=== PATIENT | female | born 1955 | race American Indian/Alaskan Native ===

== ENCOUNTER → 2023-11-16 10:24 | Outpatient (REF) | payer OTHER, SELFPAY ==
[2023-11-16 12:21] LABS: ALT (SGPT) 30 U/L (0-35); AST (SGOT) 34 U/L (14-36); Alkaline Phosphatase 177 U/L (38-126); Direct Bilirubin 0.5 mg/dl (0.0-0.4); GGTP 30 U/L (12-43); Total Bilirubin 0.7 mg/dl (0.2-1.3); Total Protein 7.1 g/dl (6.3-8.2)
== END ==
LOC: CLINIC 10:24
PROVIDERS: ATTENDING PHYSICIAN Nurse Practitioner Adult Health
DX: R74.8 Abnormal levels of other serum enzymes (principal)
CPT/HCPCS: 36415; 80076; 82977

== ENCOUNTER → 2024-01-12 08:07 | Outpatient (REF) | payer OTHER, SELFPAY ==
[2024-01-12 09:00] LABS: Glycohemoglobin (HgbA1c) 6.3 % (4.0-5.6)
[2024-01-12 09:44] LABS: ALT (SGPT) 24 U/L (0-35); AST (SGOT) 30 U/L (14-36); Albumin 4.3 g/dl (3.5-5.0); Alkaline Phosphatase 150 U/L (38-126); Total Bilirubin 0.8 mg/dl (0.2-1.3); Total Protein 7.4 g/dl (6.3-8.2)
[2024-01-12 10:00] LABS: Free T4 0.73 ng/dl (0.78-2.19)
== END ==
LOC: CLINIC 08:07
PROVIDERS: ATTENDING PHYSICIAN Nurse Practitioner Adult Health
DX: R74.8 Abnormal levels of other serum enzymes (principal); E03.9 Hypothyroidism, unspecified; R73.03 Prediabetes
CPT/HCPCS: 36415; 80076; 83036; 84439; 84443

== ENCOUNTER → 2024-04-07 06:59 | Outpatient (REF) | payer OTHER, SELFPAY ==
[2024-04-07 09:54] LABS: ALT (SGPT) 24 U/L (0-35); AST (SGOT) 29 U/L (14-36); Albumin 3.9 g/dl (3.5-5.0); Alkaline Phosphatase 146 U/L (38-126); Blood Urea Nitrogen 16 mg/dl (7-17); Calcium 9.5 mg/dl (8.4-10.2); Carbon Dioxide 24 mmol/L (22-30); Chloride 107 mmol/L (98-107); Glucose 104 mg/dl (70-99); HDL Cholesterol 48 mg/dl; LDL Cholesterol, Calculated 131 mg/dl; Potassium 4.4 mmol/L (3.5-5.1); Sodium 138 mmol/L (135-145); Total Bilirubin 0.9 mg/dl (0.2-1.3); Total Cholesterol 226 mg/dl (50-199); Total Protein 6.7 g/dl (6.3-8.2); Triglyceride 237 mg/dl (10-149); Very Low Density Lipoprotein 47 mg/dl (0-30); eGFR > 60.00
[2024-04-07 10:07] LABS: Glycohemoglobin (HgbA1c) 5.8 % (4.0-5.6)
[2024-04-07 10:12] LABS: Free T4 1.29 ng/dl (0.78-2.19); Vitamin D, 25-OH*** 35.2 ng/mL (30-80)
[2024-04-07 10:25] LABS: TSH 1.94 uIU/ml (0.47-4.68)
== END ==
LOC: REG 06:59
PROVIDERS: ATTENDING PHYSICIAN Nurse Practitioner Adult Health
DX: R74.8 Abnormal levels of other serum enzymes (principal); R73.03 Prediabetes; E78.5 Hyperlipidemia, unspecified; E03.9 Hypothyroidism, unspecified
CPT/HCPCS: 36415; 80053; 80061; 82306; 83036; 84439; 84443

== ENCOUNTER → 2024-07-08 10:37 | Outpatient (REF) | payer OTHER, SELFPAY ==
[2024-07-08 12:42] LABS: ALT (SGPT) 28 U/L (0-35); AST (SGOT) 31 U/L (14-36); Albumin 3.9 g/dl (3.5-5.0); Alkaline Phosphatase 133 U/L (38-126); Blood Urea Nitrogen 16 mg/dl (7-17); Calcium 9.7 mg/dl (8.4-10.2); Carbon Dioxide 26 mmol/L (22-30); Chloride 105 mmol/L (98-107); Glucose 101 mg/dl (70-99); Potassium 4.7 mmol/L (3.5-5.1); Sodium 140 mmol/L (135-145); Total Bilirubin 0.7 mg/dl (0.2-1.3); Total Protein 6.7 g/dl (6.3-8.2); eGFR > 60.00
[2024-07-08 12:59] LABS: Free T4 1.85 ng/dl (0.78-2.19)
[2024-07-08 13:13] LABS: TSH 0.45 uIU/ml (0.47-4.68)
[2024-07-08 14:15] LABS: Glycohemoglobin (HgbA1c) 5.9 % (4.0-5.6)
== END ==
LOC: CLINIC 10:37
PROVIDERS: ATTENDING PHYSICIAN Nurse Practitioner Adult Health
DX: R74.8 Abnormal levels of other serum enzymes (principal); E03.9 Hypothyroidism, unspecified; R73.03 Prediabetes
CPT/HCPCS: 36415; 80053; 83036; 84439; 84443

== ENCOUNTER → 2024-09-09 07:36 | Outpatient (REF) | payer OTHER, SELFPAY ==
[2024-09-09 09:30] LABS: Free T4 0.93 ng/dl (0.78-2.19)
[2024-09-09 09:44] LABS: TSH 7.25 uIU/ml (0.47-4.68)
== END ==
LOC: CLINIC 07:36
PROVIDERS: ATTENDING PHYSICIAN Nurse Practitioner Adult Health
DX: E03.9 Hypothyroidism, unspecified (principal)
CPT/HCPCS: 36415; 84439; 84443

== ENCOUNTER → 2024-12-09 07:58 | Outpatient (REF) | payer OTHER, SELFPAY ==
[2024-12-09 10:31] LABS: Free T4 1.43 ng/dl (0.78-2.19)
[2024-12-09 10:45] LABS: TSH 8.18 uIU/ml (0.47-4.68)
== END ==
LOC: CLINIC 07:58
PROVIDERS: ATTENDING PHYSICIAN Nurse Practitioner Adult Health
DX: E03.9 Hypothyroidism, unspecified (principal)
CPT/HCPCS: 36415; 84439; 84443

== ENCOUNTER → 2025-03-19 08:18 | Outpatient (REF) | payer OTHER, SELFPAY ==
[2025-03-19 10:09] LABS: Vitamin D, 25-OH*** 66.6 ng/mL (30-80)
[2025-03-19 10:57] LABS: ALT (SGPT) 24 U/L (0-35); AST (SGOT) 26 U/L (14-36); Albumin 4.2 g/dl (3.5-5.0); Alkaline Phosphatase 149 U/L (38-126); Blood Urea Nitrogen 13 mg/dl (7-17); Calcium 9.6 mg/dl (8.4-10.2); Carbon Dioxide 24 mmol/L (22-30); Chloride 109 mmol/L (98-107); Glucose 117 mg/dl (70-99); HDL Cholesterol 50 mg/dl; LDL Cholesterol, Calculated 150 mg/dl; Potassium 4.4 mmol/L (3.5-5.1); Sodium 140 mmol/L (135-145); Total Bilirubin 0.8 mg/dl (0.2-1.3); Total Cholesterol 231 mg/dl (50-199); Total Protein 7.1 g/dl (6.3-8.2); Triglyceride 158 mg/dl (10-149); Very Low Density Lipoprotein 31 mg/dl (0-30); eGFR > 60.00
[2025-03-19 11:21] LABS: Glycohemoglobin (HgbA1c) 5.9 % (4.0-5.6)
== END ==
LOC: CLINIC 08:18
PROVIDERS: ATTENDING PHYSICIAN Nurse Practitioner Adult Health
DX: R74.8 Abnormal levels of other serum enzymes (principal); E78.5 Hyperlipidemia, unspecified; R73.03 Prediabetes; E55.9 Vitamin D deficiency, unspecified
CPT/HCPCS: 36415; 80053; 80061; 82306; 83036